=== PATIENT | female | born 2000 | race Asian ===

== ENCOUNTER 2020-02-01 22:00 | Emergency (ER) | payer OTHER ==
[~2020-02-01] VITALS: Ht 157.5 cm; Wt 46.5 kg
[2020-02-01] MEDS ORDERED: NEXP1IMP SC (22:08)
[2020-02-01 22:58] LABS: BASO # 0.1 10^3/uL (0.0-0.2); BASO % 0.3 % (0.0-1.0); EOS # 0.1 10^3/uL (0.0-0.5); EOS % 0.3 % (0.0-3.0); HEMATOCRIT 39.5 % (36.0-47.0); HEMOGLOBIN 13.3 g/dl (12.0-15.5); LYMPH # 2.8 10^3/uL (1.5-5.0); LYMPH % 14.8 % (24.0-44.0); MEAN CORPUSCULAR HEMOGLOBIN 28.4 pg (27.0-33.0); MEAN CORPUSCULAR HGB CONC 33.7 g/dl (32.0-36.5); MEAN CORPUSCULAR VOLUME 84.2 fl (80.0-96.0); MONO % 5.3 % (0.0-5.0); NEUTROPHILS # 14.9 10^3/uL (1.5-8.5); NEUTROPHILS % 78.7 % (36.0-66.0); PLATELET COUNT, AUTOMATED 305 10^3/uL (150-450); RED BLOOD COUNT 4.69 10^6/uL (4.00-5.40); WHITE BLOOD COUNT 18.9 10^3/uL (4.0-10.0)
[2020-02-01 23:26] LABS: ALBUMIN 3.7 GM/DL (3.2-5.2); ALT/SGPT 17 U/L (12-78); BILIRUBIN,DIRECT < 0.1 MG/DL (0.0-0.2); BILIRUBIN,TOTAL 0.4 MG/DL (0.2-1.0); BLOOD UREA NITROGEN 13 MG/DL (7-18); CALCIUM LEVEL 8.8 MG/DL (8.5-10.1); CARBON DIOXIDE LEVEL 27 MEQ/L (21-32); CHLORIDE LEVEL 109 MEQ/L (98-107); CREATININE FOR GFR 0.58 MG/DL (0.55-1.30); GLOMERULAR FILTRATION RATE > 60.0 (>60); GLUCOSE, FASTING 94 MG/DL (70-100); LIPASE 194 U/L (73-393); POTASSIUM SERUM 3.7 MEQ/L (3.5-5.1); SODIUM LEVEL 139 MEQ/L (136-145); TOTAL PROTEIN 7.4 GM/DL (6.4-8.2)
[2020-02-01] MEDS ORDERED: ISOVUE-370 76% 100ML VIAL As Ordered ONE (23:58)
[2020-02-02] MEDS ORDERED: ONDANSETRON 4MG/2ML VIAL IV ONE
[2020-02-02] MEDS ORDERED: NS 1,000 ML IV ONE
[2020-02-02] MEDS ORDERED: KETOROLAC 30 MG/ML 1ML VIAL IV ONE
--- NOTE | 2020-02-02 00:15 | REPVR ---
PROCEDURE INFORMATION: Exam: CT Abdomen And Pelvis With Contrast Exam date and time: 02/01/2020 11:52 PM Age: 19 years old Clinical indication: Abdominal pain; Flank; Right; Additional info: R flank pain, mcburney PT tender, elev wbc TECHNIQUE: Imaging protocol: Computed tomography of the abdomen and pelvis with intravenous contrast. Radiation optimization: All CT scans at this facility use at least one of these dose optimization techniques: automated exposure control; mA and/or kV adjustment per patient size (includes targeted exams where dose is matched to clinical indication); or iterative reconstruction. Contrast material: ISO; Contrast volume: 100 ml; Contrast route: INTRAVENOUS (IV); COMPARISON: No relevant prior studies available. FINDINGS: Liver: Mild hepatomegaly and steatosis. Gallbladder and bile ducts: Normal. No calcified stones. No ductal dilation. Pancreas: Normal. No ductal dilation. Spleen: Normal. No splenomegaly. Adrenals: Normal. No mass. Kidneys and ureters: Normal. No hydronephrosis. Stomach and bowel: Moderate amount stool in the right and transverse colon. Appendix: No evidence of appendicitis. Intraperitoneal space: Small amount of free fluid in the pelvis. Vasculature: Unremarkable. No abdominal aortic aneurysm. Lymph nodes: Unremarkable. No enlarged lymph nodes. Bladder: Urinary bladder wall thickening with stranding of the adjacent fat. Correlate with urinalysis for evidence of cystitis. Reproductive: Unremarkable as visualized. Bones/joints: Unremarkable. No acute fracture. Soft tissues: Unremarkable. IMPRESSION: Urinary bladder wall thickening with stranding of the adjacent fat. Correlate with urinalysis for evidence of cystitis. Normal appendix. No hydronephrosis or nephrolithiasis bilaterally. Electronically signed by: Luis Wallace On 02/02/2020 00:15:02 AM
[2020-02-02 01:29] VITALS: BP 121/71
[2020-02-02] MEDS ORDERED: KEFL500C17 PO (01:33)
[2020-02-02] MEDS ORDERED: PYRI1TAB5 PO (01:41)
[2020-02-02] MEDS ORDERED: cefTRIAXone SOD 1 GM in D5W MINI-BAG PLUS 50 ML IV ONE (01:45)
[2020-02-02] MEDS ORDERED: PHENAZOPYRIDINE 100 MG TAB PO ONE (01:45)
[2020-02-02] MEDS ORDERED: CEPHALEXIN 500 MG CAP PO ONE (01:45)
== END 2020-02-02 01:50 | disposition home or self-care (01) ==
LOC: M ED 22:00
DX: N10 Acute pyelonephritis (principal); Z79.3 Long term (current) use of hormonal contraceptives
CPT/HCPCS: 74177; 80048; 80076; 81001; 83690; 84702; 85025; 87088; 87186; 96374; 96375; 99284; J1885; J2405; Q9967

== ENCOUNTER → 2020-02-04 | Outpatient (REF) | payer OTHER ==
[~2020-02-04] MED LIST: KEFL500C17 PO; NEXP1IMP SC; PYRI1TAB5 PO
== END ==
LOC: M LAB REF 14:40
PROVIDERS: ATTEND Physician Assistant
DX: N39.0 Urinary tract infection, site not specified (principal)

== ENCOUNTER → 2020-02-25 | Outpatient (REF) | payer OTHER | LOC: M LAB REF 16:58 | PROVIDERS: ATTEND Physician Assistant | DX: N39.0 Urinary tract infection, site not specified (principal) ==

== ENCOUNTER → 2020-06-22 | Outpatient (REF) | payer OTHER | LOC: M LAB REF 18:47 | PROVIDERS: ATTEND Family Medicine | DX: J06.9 Acute upper respiratory infection, unspecified (principal) ==

== ENCOUNTER → 2020-08-08 | Outpatient (CLI) | payer OTHER ==
--- NOTE | 2020-08-08 15:05 | REPVR ---
PROCEDURE INFORMATION: Exam: CT Neck Without Contrast Exam date and time: 08/08/2020 2:44 PM Age: 20 years old Clinical indication: Pain; Other: Enlarged lymph nodes; Additional info: ESPINAL / enlarged lymph nodes TECHNIQUE: Imaging protocol: Computed tomography images of the neck without contrast. Radiation optimization: All CT scans at this facility use at least one of these dose optimization techniques: automated exposure control; mA and/or kV adjustment per patient size (includes targeted exams where dose is matched to clinical indication); or iterative reconstruction. COMPARISON: No relevant prior studies available. FINDINGS: Nasopharynx: Unremarkable. Oropharynx: Unremarkable. No significant tonsillar enlargement. Hypopharynx: Unremarkable. Larynx: Unremarkable. Normal epiglottis. Retropharyngeal space: Unremarkable. Submandibular/Parotid glands: Normal. Glands are normal in size. Thyroid: The thyroid gland is normal. Lymph nodes: There are numerous prominent but non-pathologic lymph nodes in the neck. There are no nodes of pathologic dimensions. Trachea: Visualized trachea is unremarkable. Lungs: The visualized portions of the lung apices are normal. Bones/joints: Unremarkable. No acute fracture. Soft tissues: Unremarkable. No significant soft tissue swelling. IMPRESSION: There are numerous prominent but non-pathologic lymph nodes in the neck. There are no nodes of pathologic dimensions. Electronically signed by: Archie Byers On 08/08/2020 15:05:47 PM
--- NOTE | 2020-08-08 15:18 | REPVR ---
PROCEDURE INFORMATION: Exam: CT Head Without Contrast Exam date and time: 08/08/2020 2:44 PM Age: 20 years old Clinical indication: Pain; Headache; Additional info: ESPINAL / enlarged lymph nodes TECHNIQUE: Imaging protocol: Computed tomography of the head without contrast. Radiation optimization: All CT scans at this facility use at least one of these dose optimization techniques: automated exposure control; mA and/or kV adjustment per patient size (includes targeted exams where dose is matched to clinical indication); or iterative reconstruction. COMPARISON: No relevant prior studies available. FINDINGS: Brain: The a sharply defined 2 cm hypodense lesion of the anteromedial left temporal fossa on axial image 3 probably represents a simple arachnoid cyst. Sagittal and coronal images were provided on special request and demonstrate typical configuration of an arachnoid cyst on sagittal image 23 and coronal image 16. Cerebral ventricles: No ventriculomegaly. Bones/joints: Unremarkable. No acute fracture. Paranasal sinuses: Visualized sinuses are unremarkable. No fluid levels. Mastoid air cells: Visualized mastoid air cells are well aerated. Soft tissues: Unremarkable. IMPRESSION: 1. The a sharply defined 2 cm hypodense lesion of the anteromedial left temporal fossa on axial image 3 probably represents a simple arachnoid cyst. Sagittal and coronal images were provided on special request and demonstrate typical configuration of an arachnoid cyst on sagittal image 23 and coronal image 16. 2. No acute intracranial process is identified. Electronically signed by: Archie Byers On 08/08/2020 15:17:52 PM
== END ==
LOC: M RAD 14:36
PROVIDERS: ATTEND Physician Assistant
DX: R51.9 Headache, unspecified (principal); R59.0 Localized enlarged lymph nodes

== ENCOUNTER → 2020-10-05 | Outpatient (CLI) | payer OTHER ==
--- NOTE | 2020-10-05 15:48 | REPVR ---
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 Contrast material: PROHANCE; Contrast volume: 9 ml; Contrast route: INTRAVENOUS (IV); COMPARISON: CT Head without contrast 08/08/2020 2:44 PM FINDINGS: Brain: Examination again demonstrates a well-defined extra-axial CSF intensity nonenhancing benign appearing arachnoid cyst in the anterior left middle cranial fossa measuring approximately 2.3 x 2.0 x 1.3 cm in dimensions. This is felt to be an incidental finding. This causes mild mass effect on the adjacent temporal lobe but without significant midline shift or uncal herniation. Examination of the brain demonstrates normal morphology and signal intensity.No acute infarction, masses, midline shift or acute hemorrhage is seen. No acute intracranial abnormality is identified.There is no abnormal diffusion weighted signal intensity to suggest an acute ischemic event.The cortical singer / white matter interfaces are preserved throughout the brain.Intracranial flow voids are well maintained. Cerebral ventricles: The ventricular system is not dilated and is appropriate for the patient's age. Bones/joints: Unremarkable. Paranasal sinuses: Normal as visualized. No acute sinusitis. Mastoid air cells: Normal as visualized. No mastoid effusion. Orbital cavity: Unremarkable. Soft tissues: Unremarkable. IMPRESSION: 1. No acute infarction, intra-axial masses or hemorrhage is seen. No acute intracranial abnormality is identified. No abnormal contrast enhancement is seen.There has been no adverse interval change since the previous study. 2. Examination again demonstrates a well-defined extra-axial CSF intensity nonenhancing benign appearing arachnoid cyst in the anterior left middle cranial fossa measuring approximately 2.3 x 2.0 x 1.3 cm in dimensions. This is felt to be an incidental finding. This causes mild mass effect on the adjacent temporal lobe but without significant midline shift or uncal herniation. Electronically signed by: Rodrigo Flores On 10/05/2020 15:48:11 PM
== END ==
LOC: M PLARAD 12:45
PROVIDERS: ATTEND Physician Assistant
DX: G93.0 Cerebral cysts (principal)

== ENCOUNTER → 2020-11-15 | Outpatient (REF) | payer OTHER | LOC: M LAB REF 18:47 | PROVIDERS: ATTEND Physician Assistant | DX: J06.9 Acute upper respiratory infection, unspecified (principal) ==